=== PATIENT | female | born 1950 | race Caucasian/White ===

== ENCOUNTER 2019-02-18 12:50 | Outpatient (CLI) | payer MEDICARE, BC ==
--- NOTE | 2019-02-18 16:39 | BD ---
DEXA BONE DENSITOMETRY: (Dual energy X-ray Absorptiometry) 02/18/19 HISTORY: 68-year-old white female for age-related osteoporosis screening examination. Ht. 59 inches. Wt. 165 lb. Age of menopausal 41 years. COMPARISON: None available. TECHNIQUE: Because of metallic hardware in the lumbar spine, bilateral hips were evaluated rather than hip and l umbar spine. FINDINGS: The bone mineral density (BMD) is given in grams per square centimeter (g/cm2): RIGHT HIP: BMD(g/cm2) T-score Z-score Femoral neck: 0.545 -2.7 -1.0 Total: 0.772 -1.4 0.1 FRAX WHO Fracture Risk Assessment Tool: 10 Year Fracture Risk * Major osteoporotic fracture: 19% Hip fracture: 5.3% Reported Risk Factors: [place](), Neck BMD=0.545, BMI=33.3, rheumatoid arthritis, and secondary osteoporosis. LEFT HIP: BMD(g/cm2) T-score Z-score Femoral neck: 0.504 -3.1 -1.3 Total: 0.730 -1.7 -0.3 FRAX WHO Fracture Risk Assessment Tool: 10 Year Fracture Risk * Major osteoporotic fracture: 21% Hip fracture: 7.1% Reported Risk Factors: US(), Neck BMD=0.504, BMI=33.3, rheumatoid arthritis, and secondary osteoporosis. * Fracture probability is calculated for an untreated patient. Fracture probability may be lower if the patient has received treatment. IMPRESSION: The bone mineral density of the hips is osteoporotic. Fracture risk is high. BREE Lynn POS: HANNAH
== END 2019-02-18 12:51 | disposition home or self-care (01) ==
LOC: BICMAMMO 12:50
PROVIDERS: ATTEND Internal Medicine Rheumatology
DX: M81.0 Age-related osteoporosis without current pathological fracture (principal)
CPT/HCPCS: 77080

== ENCOUNTER 2020-02-18 06:42 | Outpatient (CLI) | payer MEDICARE, BC, OTHER ==
[2020-02-18 14:06] LABS: Mean Corpuscular HGB CONC 32.3 g/dL (32.0-36.0); Mean Corpuscular Hemoglobin 31.8 pg (27.0-31.0); Mean Corpuscular Volume 98.5 fL (78.0-98.0); Mean Platelet Volume 7.1 fL (7.4-10.4); Platelet Count 303 thou/uL (130-400); RBC Distribution Width 15.9 % (11.5-14.5); Red Blood Cell (RBC) Count 3.78 mill/uL (4.20-5.40)
[2020-02-18 14:09] LABS: PTT 29.1 sec (22.9-36.1); Prothrombin Time 13.1 sec (12.0-14.7)
[2020-02-18 14:24] LABS: Anion Gap 13 mmol/L (10-20); BUN (Urea Nitrogen) 15 mg/dL (9.8-20.1); Calc. Creatinine Clearance 0 mL/min (70-130); Calcium 9.9 mg/dL (7.8-10.44); Carbon Dioxide 26 mmol/L (23-31); Chloride 105 mmol/L (98-107); Estimated GFR-MDRD 60; Glucose 95 mg/dL (80-115); Potassium 4.5 mmol/L (3.5-5.1); Sodium 139 mmol/L (136-145)
[2020-02-19 17:20] LABS: SARS-CoV-2 MS2 Positive; SARS-CoV-2 N Gene Negative; SARS-CoV-2 S Gene Negative; SARS-CoV-2 orf1ab Negative
== END 2020-02-18 06:43 | disposition home or self-care (01) ==
LOC: LABBT 06:42
PROVIDERS: ATTEND Neurological Surgery
DX: Z01.812 Encounter for preprocedural laboratory examination (principal); Z11.59 Encounter for screening for other viral diseases; M48.061 Spinal stenosis, lumbar region without neurogenic claudication
CPT/HCPCS: 80048; 85027; 85610; 85730; U0003; 87635

== ENCOUNTER 2020-02-18 12:00 | Inpatient (IN) | payer MEDICARE, BC ==
[2020-02-18 12:58] VITALS: BMI 30.7
[2020-02-22] MEDS ORDERED: Bupivacaine PF 0.5% 30 ML VIAL ONE (09:14)
[2020-02-22] MEDS ORDERED: Thrombin 5000 UNITS/5 ML VIAL ONE (09:14)
[2020-02-22] MEDS ORDERED: EPINEPHrine 1 MG/ML AMP ONE (09:14)
[2020-02-22] MEDS ORDERED: traMADol HCl 50 MG TAB PO PRN (09:47)
[2020-02-22] MEDS ORDERED: Acetaminophen 325 MG TAB PO PRN (09:47)
[2020-02-22] MEDS ORDERED: Promethazine 25 MG TAB PO PRN (09:47)
[2020-02-22] MEDS ORDERED: Milk Of Magnesia 30 ML UDCUP PO PRN (09:47)
[2020-02-22] MEDS ORDERED: Mag-Al 1200 mg/1200 mg/30 ML UDCUP PO PRN (09:47)
[2020-02-22] MEDS ORDERED: Scopolamine 1.5 mg/72 hour Patch TD PRN (09:47)
[2020-02-22] MEDS ORDERED: Morphine 2 MG/ML SYRINGE SLOW IVP PRN (09:47)
[2020-02-22] MEDS ORDERED: Acetaminophen/Codeine 30-300mg Tablet PO PRN (09:47)
[2020-02-22] MEDS ORDERED: diphenhydrAMINE 25 MG CAP PO PRN (09:47)
[2020-02-22] MEDS ORDERED: Albuterol Sulfate 1.25 MG/3 ML NEB NEB PRN (09:56)
[2020-02-22] MEDS ORDERED: Ondansetron ODT 4 MG TAB PO PRN (09:56)
[2020-02-22] MEDS ORDERED: Albumin 5% 500 ML ONE (10:03)
[2020-02-22] MEDS ORDERED: Fentanyl 100 MCG/2 ML VIAL ONE ×3 (10:03→14:37)
[2020-02-22] MEDS ORDERED: Midazolam HCl 2 mg/2 ml Vial ONE (10:03)
[2020-02-22] MEDS ORDERED: Ketamine 50 MG/ML (10ML VIAL) ONE (11:05)
[2020-02-22] MEDS ORDERED: Norepinephrine 4 MG/4 ML VIAL ONE (11:05)
[2020-02-22] MEDS ORDERED: EPHEDRINE 25 MG/5 ML SYRINGE ONE ×3 (12:18→12:36)
[2020-02-22] MEDS ORDERED: Dexamethasone 20 MG/5 ML VIAL ONE (12:36)
[2020-02-22] MEDS ORDERED: Glycopyrrolate 0.2 MG/ML 5 ML SYRINGE ONE (12:36)
[2020-02-22] MEDS ORDERED: diphenhydrAMINE 50 MG/ML VIAL ONE (12:36)
[2020-02-22] MEDS ORDERED: PROPOFOL 200 MG/20 ML VIAL ONE (12:36)
[2020-02-22] MEDS ORDERED: Ondansetron PF 4 MG/2 ML Vial ONE (12:36)
[2020-02-22] MEDS ORDERED: Rocuronium Bromide 10 MG/ML (10ML VIAL) ONE (12:36)
[2020-02-22] MEDS ORDERED: SUGAMMADEX SODIUM 200 MG/2 ML VIAL ONE (13:19)
[2020-02-22] MEDS ORDERED: Ondansetron HCl/PF 4 MG/2 ML Vial IVP PRN (13:34)
[2020-02-22] MEDS ORDERED: Ketorolac Tromethamine 30 MG/ML VIAL IVP PRN (13:34)
[2020-02-22] MEDS ORDERED: Tamsulosin HCl 0.4 MG CAP ONE (14:37)
[2020-02-22] MEDS: CEFAZOLIN 2 GM in Premix Bag 1 BAG IVPB SCH (16:17)
[2020-02-22] MEDS: Gabapentin 300 MG CAP PO SCH ×2 (16:17→20:08)
--- NOTE | 2020-02-22 19:49 | OP ---
DATE OF PROCEDURE: 02/22/2020 ELECTRICAL AND INSTRUMENT MECHANIC: Marcell Abraham PA-C PREOPERATIVE INDICATION: Treat pain, prevent neurological deterioration. PREOPERATIVE DIAGNOSIS: Prior lumbar fusion, adjacent segment stenosis with neurogenic claudication at L2-3 and lateral recess stenosis with radiculopathy, L5-S1. POSTOPERATIVE DIAGNOSIS: Prior lumbar fusion, adjacent segment stenosis with neurogenic claudication at L2-3 and lateral recess stenosis with radiculopathy, L5-S1. OPERATIVE PROCEDURE: Reopening lumbar incision, removal of posterior instrumentation (horizontal crossbar between pedicle screws), decompressive laminectomy, medial facetectomy, foraminotomy at L2-3 and L5-S1, bilateral. Operating microscope. PREOPERATIVE MEDICATIONS: Ancef 2 g IV. DRAIN NUMBER: Zero. DRAIN TYPE: None. TECHNIQUE: The patient was brought to the operating room, where general endotracheal anesthesia was induced. The patient was carefully positioned on the Ezio frame with the chest and hips supported by gel-filled chest rolls. A lateral fluoro-radiograph confirmed that the previous incision could give us access from L2-S1. The lumbar skin was sterilely prepped and draped. We reopened her lumbar incision. We controlled bleeding with bipolar and monopolar cautery. We used monopolar cautery to dissect the scar tissue and thoracodorsal fascia. We reflected the paraspinal muscles remnant of the spinous process at L2 and L5 and over the facet joints between those two areas. We dissected through scar tissue until we found the horizontal crossbar that connected the rods from one side to the other. Using the , we loosened the tightening nuts. This crossbar did not move. We had to dissect. I oneyda out some bone from the fusion mass and loosened soft tissue circumferentially around the titanium gera before it could be removed. Finally, it was removed. We then turned our attention to decompression. Using Adson rongeur, we removed the spinous process of L2 and thinned the lamina there. Using angled curette, we identified the inferior margin of the L2 lamina and using Kerrison rongeurs, we fashioned a laminectomy. We widened our laminectomy defect with Kerrison. We performed medial facetectomies on both sides. There was a copious amount of scar tissue and overgrown facet joint compressing the lateral recesses. These were removed with Kerrison rongeurs. We used microsurgical techniques in the operative microscope to remove scar tissue from the dura. We worked away down past the L3 pedicles, identified the L3 nerve roots and performed foraminotomies over these roots. We decompressed even beyond the foramen. Decompression from the L2 pedicles past the L3 nerve root foramen on each side was secured. We turned our attention to L5-S1. We irrigated with bacitracin irrigation. Removed the L5 spinous process with Adson rongeur. Using Kerrison rongeurs, we fashioned a laminectomy. We widened our laminectomy defect by performing medial facetectomies. We identified the overgrown facet joint especially on the left side in the lateral recess and were removed in a piecemeal fashion. We identified the traversing nerve roots at S1 and the exiting nerve root at L5. We ensured both nerve roots could pass through the spine and out their respective foramina without impingement. We irrigated with bacitracin irrigation. We performed this procedure again on the right side. We controlled bleeding by waxing the bone edges and using bipolar cautery. We irrigated copiously with bacitracin irrigation. We treated the wound with vancomycin powder. We closed in anatomical layers and we applied a sterile dressing. It is clean case, no contamination. Job ID: [id number]
[2020-02-22] MEDS: Atorvastatin Calcium 20 MG TAB PO SCH (20:08)
[2020-02-23] MEDS: CEFAZOLIN 2 GM in Premix Bag 1 BAG IVPB SCH (00:06)
[2020-02-23] MEDS: Sodium Chloride 0.9% 1,000 ML IV SCH ×4 (00:13→18:24)
[2020-02-23] MEDS: tiZANidine HCl 4 MG TAB PO PRN ×2 (00:28→23:30)
[2020-02-23] MEDS: HYDROcodone/Acetaminophen 7.5/325 mg Tablet PO PRN (04:21)
[2020-02-23] MEDS ORDERED: Tamsulosin HCl 0.4 MG CAP PO SCH (06:00)
--- NOTE | 2020-02-23 08:10 | PRG ---
DATE OF SERVICE: 02/23/2020 Ms. Mueller is 1 day out from decompressive laminectomy for severe neurogenic claudication. Her vital signs and neurological examination are reassuring. When she is safe for activities of daily living, she will be ready for discharge. That could happen as early as this afternoon. Job ID: [id number]
[2020-02-23] MEDS ORDERED: Furosemide 20 MG TAB PO SCH (09:00)
[2020-02-23] MEDS: Atenolol 25 MG TAB PO SCH (09:48)
[2020-02-23] MEDS: Gabapentin 300 MG CAP PO SCH ×3 (09:48→19:36)
[2020-02-23] MEDS ORDERED: Albumin 25% 25 GM/100 ML BOT IVPB SCH (11:32)
[2020-02-23 12:07] LABS: #Lymphocytes 2.1 thou/uL (1.20-3.40); #Monocytes 1.1 thou/uL (0.11-0.59); %Basophils 0.1 % (0.0-1.0); %Eosinophils 0.2 % (0.0-10.0); %Lymphocytes 22.5 % (21.0-51.0); %Monocytes 12.1 % (0.0-10.0); %Neutrophils 65.1 % (42.0-75.0); Hemoglobin 8.1 g/dL (12.0-16.0); Mean Corpuscular HGB CONC 31.4 g/dL (32.0-36.0); Mean Corpuscular Hemoglobin 31.3 pg (27.0-31.0); Mean Corpuscular Volume 99.7 fL (78.0-98.0); Mean Platelet Volume 7.2 fL (7.4-10.4); Platelet Count 194 thou/uL (130-400); RBC Distribution Width 15.7 % (11.5-14.5); Red Blood Cell (RBC) Count 2.58 mill/uL (4.20-5.40); White Blood Cell (WBC) Count 9.3 thou/uL (4.8-10.8)
[2020-02-23 12:20] LABS: Anion Gap 12 mmol/L (10-20); BUN (Urea Nitrogen) 17 mg/dL (9.8-20.1); Calc. Creatinine Clearance 54 mL/min (70-130); Calcium 8.1 mg/dL (7.8-10.44); Carbon Dioxide 26 mmol/L (23-31); Chloride 106 mmol/L (98-107); Estimated GFR-MDRD 51; Glucose 169 mg/dL (80-115); Potassium 4.6 mmol/L (3.5-5.1); Sodium 139 mmol/L (136-145)
[2020-02-23] MEDS: Atorvastatin Calcium 20 MG TAB PO SCH (19:31)
[2020-02-24] MEDS: HYDROcodone/Acetaminophen 7.5/325 mg Tablet PO PRN ×2 (05:31→21:36)
[2020-02-24] MEDS: Sodium Chloride 0.9% 1,000 ML IV SCH ×2 (05:33→19:20)
--- NOTE | 2020-02-24 08:00 | PRG ---
DATE OF SERVICE: 02/24/2020 Ms. Mueller is still in the hospital. Yesterday, she had blood pressures dipping into the low 90s. However, at home, her blood pressure runs at 103. She also is not in the chronic pain that she was in before. Perhaps, she does not need as much antihypertensive medication chronically going forward. I do not find any new neurological deficits or any symptoms related to the lower blood pressure. She has had a good result from surgery and can go home today. She will follow up with her primary care physician regarding her antihypertensives. She may cut her atenolol in half until indicated. Job ID: [id number]
--- NOTE | 2020-02-24 08:27 | PDOC.HOSPP ---
- Subjective Encounter Date: 02/23/20 Encounter Time: 10:30 Subjective: pt up in bed no complains. - Objective Vital Signs & Weight: Vital Signs (12 hours) Temp Pulse Resp BP Pulse Ox 02/24/20 07:21 98.1 F 94 18 91/58 L 95 02/24/20 03:15 99.2 F 107 H 18 115/68 94 L 02/23/20 23:47 98.8 F 78 18 103/61 92 L Weight Weight 152 lb I&O: 02/23/20 02/24/20 02/25/20 06:59 06:59 06:59 Intake Total 2079 1580 Output Total 2300 Balance 0 -720 Result Diagrams: 02/23/20 11:43 02/23/20 11:43 Hospitalist ROS - Review of Systems Cardiovascular: denies: chest pain, palpitations, orthopnea, paroxysmal noc. dyspnea, edema, light headedness, other Gastrointestinal: denies: nausea, vomiting, abdominal pain, diarrhea, constipation, melena, hematochezia, other Genitourinary: denies: dysuria, frequency, incontinence, hematuria, retention, other - Medication Medications: Active Medications Generic Name Dose Route Start Last Admin Trade Name Freq PRN Reason Stop Dose Admin Hydrocodone Bitart/Acetaminophen 1 tab 02/22/20 13:25 02/24/20 05:31 [place] 7.5/325 PO 1 tab Q4H PRN Administration Mild Pain (1-3) Atenolol 25 mg 02/23/20 09:00 02/23/20 09:48 Tenormin PO Not Given DAILY ABDON Atorvastatin Calcium 20 mg 02/22/20 21:00 02/23/20 19:31 Lipitor PO 20 mg HS ABDON Administration Furosemide 20 mg 02/23/20 09:00 02/23/20 09:48 Lasix PO Not Given DAILY ABDON Gabapentin 300 mg 02/22/20 15:00 02/23/20 19:36 Neurontin PO Not Given TID ABDON Sodium Chloride 1,000 mls @ 90 mls/hr 02/22/20 10:00 02/24/20 05:33 Normal Saline 0.9% IV 1,000 mls .Q11H7M ABDON Administration Pantoprazole Sodium 40 mg 02/23/20 09:00 02/23/20 08:02 Protonix PO 40 mg DAILY ABDON Administration Tizanidine HCl 4 mg 02/22/20 09:47 02/23/20 23:30 Zanaflex PO 4 mg Q6H PRN Administration Muscle Spasm - Exam Neck: negative: supple, symmetric, no JVD, no thyromegaly, no lymphadenopathy, no carotid bruit, JVD Heart: negative: RRR, no murmur, no gallops, no rubs, normal peripheral pulses, irregular, diminshed peripheral pulses, murmur present, II/IV, III/IV Respiratory: negative: CTAB, no wheezes, no rales, no ronchi, normal chest expansion, no tachypnea, normal percussion, rales, rhonchi, tachypneic, wheezes Gastrointestinal: negative: soft, non-tender, non-distended, normal bowel sounds , no palpable masses, no hepatomegaly, no splenomegaly, no bruit, no guarding, no rigidity, tender to palpation, distended, diminished bowl sounds, voluntary guarding Hosp A/P (1) Hypotension Status: Acute (2) Hypertension Code(s): I10 - ESSENTIAL (PRIMARY) HYPERTENSION Status: Acute (3) Anemia Code(s): D64.9 - ANEMIA, UNSPECIFIED Status: Acute - Plan will give her albumin and ns bolus. will hold lasix and bp meds for now. will check cbc and bmp now.
[2020-02-24] MEDS: Gabapentin 300 MG CAP PO SCH ×3 (09:48→21:37)
[2020-02-24] MEDS ORDERED: Dofetilide 0.125 MG CAP PO SCH ×2 (11:15→11:30)
--- NOTE | 2020-02-24 11:19 | PDOC.HOSPP ---
- Subjective Encounter Date: 02/24/20 Encounter Time: 11:17 Subjective: pt up in bed no complains - Objective Vital Signs & Weight: Vital Signs (12 hours) Temp Pulse Resp BP Pulse Ox 02/24/20 08:00 95 02/24/20 07:21 98.1 F 94 18 91/58 L 95 02/24/20 03:15 99.2 F 107 H 18 115/68 94 L 02/23/20 23:47 98.8 F 78 18 103/61 92 L Weight Weight 152 lb I&O: 02/23/20 02/24/20 02/25/20 06:59 06:59 06:59 Intake Total 2079 1580 Output Total 2300 Balance 2079 - Result Diagrams: 02/23/20 11:43 02/23/20 11:43 Hospitalist ROS - Review of Systems Respiratory: denies: cough, dry, shortness of breath, hemoptysis, SOB with excertion, pleuritic pain, sputum, wheezing, other Cardiovascular: denies: chest pain, palpitations, orthopnea, paroxysmal noc. dyspnea, edema, light headedness, other Gastrointestinal: denies: nausea, vomiting, abdominal pain, diarrhea, constipation, melena, hematochezia, other - Medication Medications: Active Medications Generic Name Dose Route Start Last Admin Trade Name Freq PRN Reason Stop Dose Admin Hydrocodone Bitart/Acetaminophen 1 tab 02/22/20 13:25 02/24/20 05:31 [place] 7.5/325 PO 1 tab Q4H PRN Administration Mild Pain (1-3) Atenolol 25 mg 02/23/20 09:00 02/23/20 09:48 Tenormin PO Not Given DAILY ABDON Atorvastatin Calcium 20 mg 02/22/20 21:00 02/23/20 19:31 Lipitor PO 20 mg HS ABDON Administration Gabapentin 300 mg 02/22/20 15:00 02/24/20 09:48 Neurontin PO 300 mg TID ABDON Administration Sodium Chloride 1,000 mls @ 90 mls/hr 02/22/20 10:00 02/24/20 05:33 Normal Saline 0.9% IV 1,000 mls .Q11H7M ABDON Administration Pantoprazole Sodium 40 mg 02/23/20 09:00 02/24/20 09:49 Protonix PO 40 mg DAILY ABDON Administration Tizanidine HCl 4 mg 02/22/20 09:47 02/23/20 23:30 Zanaflex PO 4 mg Q6H PRN Administration Muscle Spasm - Exam Respiratory: negative: CTAB, no wheezes, no rales, no ronchi, normal chest expansion, no tachypnea, normal percussion, rales, rhonchi, tachypneic, wheezes Gastrointestinal: negative: soft, non-tender, non-distended, normal bowel sounds , no palpable masses, no hepatomegaly, no splenomegaly, no bruit, no guarding, no rigidity, tender to palpation, distended, diminished bowl sounds, voluntary guarding Hosp A/P (1) Hypotension Status: Acute (2) Hypertension Code(s): I10 - ESSENTIAL (PRIMARY) HYPERTENSION Status: Acute (3) Anemia Code(s): D64.9 - ANEMIA, UNSPECIFIED Status: Acute (4) Afib Code(s): I48.91 - UNSPECIFIED ATRIAL FIBRILLATION Status: Acute - Plan will give her albumin and ns bolus. will hold lasix and bp meds for now. will check cbc and bmp now. 02/23 will start pt's antiarrthymic for her afib. HOld AC due to surgery. Asked PT to get pt up. If she is dizzy she may need a unit of blood since her hh dropped 12 to 8. will hold bb/lasix and valsartan for now. orthostatic bp negative. would recommend hold valsartan/lasix for now, may need to reduce the dose of her bb. medications adjusted pt notified and educated. will sign off
[2020-02-24] MEDS ORDERED: Folic Acid 1 MG TAB PO SCH ×2 (21:00)
[2020-02-24] MEDS: Dofetilide 0.125 MG CAP PO SCH (21:36)
[2020-02-24] MEDS: Atorvastatin Calcium 20 MG TAB PO SCH (21:36)
[2020-02-25] MEDS: Sodium Chloride 0.9% 1,000 ML IV SCH (04:55)
--- NOTE | 2020-02-25 07:33 | PRG ---
DATE OF SERVICE: 02/25/2020 Ms. Mueller is still in the hospital for some reason. She had a bit of a low blood pressure after surgery because her pain was gone and she likely does not need all of the antihypertensive as she used to be on because she is feeling so much better. Her blood count dipped a little bit, but she got hemodynamically diluted with IV fluid. I believe, Ms. Mueller is going to do very well after discharge, which should be today. Job ID: [id number]
[2020-02-25] MEDS: Dofetilide 0.125 MG CAP PO SCH (08:31)
[2020-02-25] MEDS: Gabapentin 300 MG CAP PO SCH (08:31)
[2020-02-25] MEDS: Atenolol 25 MG TAB PO SCH (08:31)
[2020-02-25] MEDS ORDERED: DULoxetine 60 MG CAP PO SCH (09:00)
[2020-02-25] MEDS ORDERED: Fenofibrate Nanocrystallized 145 MG TAB PO SCH (09:00)
[2020-02-25] MEDS ORDERED: DULOXETINE HCL 60 MG PO SCH (09:00)
[2020-02-25] MEDS ORDERED: FENOFIBRATE 145 MG PO SCH (09:00)
[2020-02-25 11:14] VITALS: TEMP 98.6
[2020-02-25 11:48] VITALS: BP 154/77
[2020-02-25] MEDS: HYDROcodone/Acetaminophen 7.5/325 mg Tablet PO PRN (12:56)
[2020-02-25] MEDS: tiZANidine HCl 4 MG TAB PO PRN (12:56)
--- NOTE | 2020-02-27 08:19 | PQF ---
[facility] Patient Day Coordinator Crystal Reports [employer] LUZ MARINA King SURYA VASQUEZ [id number] [facility] [id number] CLINICAL DOCUMENTATION CLARIFICATION FORM: POST DISCHARGE Addendum to original discharge summary date: ____ Late entry note date: __ DATE: 02/27/2020 ATTN: uSrya Ramirez Please exercise your independent, professional judgment in responding to the clarification form. Clinical indicators are provided on the bottom of this form for your review Please check appropriate box(s): [ ] Acute blood loss anemia [ x ] Post-op anemia related to acute blood loss [ ] Unspecified anemia [ ] Other diagnosis [ ] Unable to determine In addition, please specify: Present on Admission (POA): [ ] Yes [ ] No [ x] Unable to determine For continuity of documentation, please document condition throughout progress notes and discharge summary. Thank You. CLINICAL INDICATORS - SIGNS / SYMPTOMS / LABS Anemia, status: Acute. If she is dizzy, she may need a unit of blood since her HH dropped 12 to 8 - PN 6/ by Surya Vasquez MD Hemoglobin is 8.1 and hematocrit is 25.7 on 02/22 - Labs Her blood count dripped a little bit, but she got hemodynamically diluted with IV fluid - PN 6/5 by Lei Dhaliwal [employer] Decompressive laminectomy and removal of posterior instruction procedure - OP 6/ 2 by Lei Dhaliwal TREATMENTS: Albumin 25 gm IVPB 6/3 - Medications Folic acid mg PO /4 - Medications (This form is maintained as a part of the permanent medical record) 2014 [employer]. All Rights Reserved [email or web address]
--- NOTE | 2020-02-28 13:47 | DIS ---
DATE OF ADMISSION: 02/22/2020 DATE OF DISCHARGE: 02/25/2020 HOSPITAL COURSE: Ms. Mueller has a removal of a L3-L4 gera and a laminectomy at L2-L3 and L5-S1. Following her surgery, she was transitioned to the med/surg floor, where pain has been well controlled with p.o. medications. She has tolerated a regular diet and is voiding appropriately. She had a bit of low blood pressure after surgery because her pain was gone and likely does not need all her antihypertensives. She is otherwise doing well and ambulating easily in the hallways and feels that she is ready to go home. PHYSICAL EXAMINATION: Today, she is awake and alert, in no acute distress. She has free active range of motion of all extremities. No focal motor weakness. No reflex asymmetry. Her incision is dry, clean, and intact. We will plan to dismiss the patient to home. I have discussed home care precautions. CONDITION ON DISCHARGE: The patient had no emergencies. Condition was stable for discharge. MEDICATIONS: Home going medications were reviewed. FOLLOWUP: Followup arrangements made by our property coordinator in the clinic and called to the patient. ACTIVITIES: Restrictions were reviewed in person. Wound care showers are acceptable. The patient should pat the incision dry, but not submerge under the surface of the body of water for 2 months. Job ID: [id number]
== END 2020-02-25 13:24 | disposition home or self-care (01) | DRG 516 ==
LOC: SURG A 02-22 08:08
PROVIDERS: ADMIT Neurological Surgery; ATTEND Neurological Surgery
PROC: 01NB0ZZ Release Lumbar Nerve, Open Approach (ICD-10-PCS; principal; 2020-02-22)
PROC: 01NR0ZZ Release Sacral Nerve, Open Approach (ICD-10-PCS; 2020-02-22)
PROC: 0SP004Z Removal of Internal Fixation Device from Lumbar Vertebral Joint, Open Approach (ICD-10-PCS; 2020-02-22)
DX: M48.062 Spinal stenosis, lumbar region with neurogenic claudication (principal); D62 Acute posthemorrhagic anemia; M48.07 Spinal stenosis, lumbosacral region; M54.17 Radiculopathy, lumbosacral region; Z96.642 Presence of left artificial hip joint; I10 Essential (primary) hypertension; D64.9 Anemia, unspecified; I48.91 Unspecified atrial fibrillation; I95.9 Hypotension, unspecified; Z90.49 Acquired absence of other specified parts of digestive tract
CPT/HCPCS: 36415; 76000; 80048; 85025; J0171; J0690; J1100; J1200; J2250; J2405; J2704; J3010; J3370; J8499; P9045; P9047; S0020